=== PATIENT | male | born 1980 | race Caucasian/White ===

== ENCOUNTER 2023-03-22 06:32 | Emergency (ER) | payer SELFPAY ==
[~2023-03-22] VITALS: Ht 175.2 cm; Wt 95.5 kg
[2023-03-22 06:39] VITALS: BP 120/71
[2023-03-22] MEDS ORDERED: HYDROcodone/ACETAMINOPHEN 5 MG/325 MG TABLET PO ONE (07:00)
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
--- NOTE | 2023-03-22 07:24 | Diagnostic Imaging Report ---
Indication: Pain. 3 view right ankle shows a lateral malleolar fracture obliquely oriented through the distal fibula with minimal 2 mm lateral displacement of the major distal fragment. The medial and posterior malleoli, the plafond and talar dome all appeared intact. The base of the 5th metatarsal intact. Impression: Lateral malleolar fracture with no other injury identified. Dictated by: Dictated on workstation # [id number]
== END 2023-03-22 07:44 | disposition home or self-care (01) ==
LOC: EDUNIT# 06:32 → ER FS 06:35
DX: R05.9 Cough, unspecified (principal)
CPT/HCPCS: 29515; 73610